=== PATIENT | male | born 1965 | race Caucasian/White ===

== ENCOUNTER → 2020-10-31 09:42 | Outpatient (BNVA) | payer OTHER, SELFPAY | PROVIDERS: Visit Provider Family Medicine Adult Medicine | DX: M54.16 Radiculopathy, lumbar region (principal); M43.06 Spondylolysis, lumbar region | CPT/HCPCS: 99212 ==

== ENCOUNTER → 2020-11-21 11:28 | Outpatient (BNVA) | payer OTHER, SELFPAY | PROVIDERS: Visit Provider Family Medicine Adult Medicine | DX: M54.16 Radiculopathy, lumbar region (principal); M43.06 Spondylolysis, lumbar region; Z79.891 Long term (current) use of opiate analgesic | CPT/HCPCS: 99212 ==

== ENCOUNTER → 2021-01-04 11:27 | Outpatient (BNVA) | payer OTHER, MEDICAID, SELFPAY | PROVIDERS: Visit Provider Family Medicine Adult Medicine | DX: Z51.81 Encounter for therapeutic drug level monitoring (principal) | CPT/HCPCS: Q3014 ==

== ENCOUNTER → 2021-02-01 10:22 | Outpatient (BNVA) | payer OTHER, MEDICAID, SELFPAY | PROVIDERS: Visit Provider Family Medicine Adult Medicine | DX: Z51.81 Encounter for therapeutic drug level monitoring (principal) | CPT/HCPCS: 99211 ==

== ENCOUNTER → 2021-10-02 08:30 | Outpatient (BNVA) | payer OTHER, MEDICAID, SELFPAY | PROVIDERS: Visit Provider Family Medicine Adult Medicine | DX: M54.16 Radiculopathy, lumbar region (principal); M43.06 Spondylolysis, lumbar region | CPT/HCPCS: 99212 ==

== ENCOUNTER → 2021-10-10 08:08 | Outpatient (BNVA) | payer OTHER, MEDICAID, SELFPAY | PROVIDERS: Visit Provider Nurse Practitioner Family | DX: M54.16 Radiculopathy, lumbar region (principal); M43.06 Spondylolysis, lumbar region | CPT/HCPCS: 99212 ==

== ENCOUNTER → 2021-10-30 08:12 | Outpatient (BNVA) | payer OTHER, MEDICAID, SELFPAY | PROVIDERS: Visit Provider Family Medicine Adult Medicine ==

== ENCOUNTER → 2021-11-27 08:38 | Outpatient (BNVA) | payer OTHER, MEDICAID, SELFPAY | PROVIDERS: Visit Provider Nurse Practitioner Family | DX: Z51.81 Encounter for therapeutic drug level monitoring (principal); M43.06 Spondylolysis, lumbar region; M54.16 Radiculopathy, lumbar region | CPT/HCPCS: 99212 ==

== ENCOUNTER → 2021-12-18 08:27 | Outpatient (BNVA) | payer OTHER, SELFPAY | PROVIDERS: Visit Provider Nurse Practitioner Family | DX: Z51.81 Encounter for therapeutic drug level monitoring (principal); F11.20 Opioid dependence, uncomplicated | CPT/HCPCS: 99211 ==

== ENCOUNTER 2023-06-24 14:49 | Outpatient (AMB) | payer OTHER, SELFPAY ==
[2023-06-24 14:51] VITALS: BP 102/68; PULSE 80; O2SAT 97; BMI 24.2
--- NOTE | 2023-06-24 14:51 | A.OFFPC_ITS ---
Vital Signs 06/24/23 14:51 Height 5 ft 4 in Weight 141 lb BMI 24.2 BP 102/68 Blood Pressure Location Lt brachial Position Sitting Pulse 80 Pulse Source Pulse Oximeter Temp Source Skin Pulse Oximetry (%) 97 Oxygen Delivery Method Room Air Intake Visit Reasons: Physical Exam Intake Note: Patient is here today for a physical. 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 Allergies No Known Allergies Allergy (Verified 06/24/23 15:15) Medication List - Last Reconciled 06/24/23 by MIRIAM De La Cruz alcohol swabs (Alcohol Prep Pads) 1 pad topical BID aspirin 81 mg PO QAM blood pressure test kit-medium As directed blood sugar diagnostic (FreeStyle Lite Strips) 1 strip miscellaneous BID 100 days blood-glucose meter (FreeStyle [place] kit) As directed buprenorphine HCl (Belbuca) 150 mcg buccal Q12H 30 days cholecalciferol (vitamin D3) 25 mcg PO DAILY 90 days cyanocobalamin (vitamin B-12) 100 mcg PO QAM dapagliflozin propanediol (Farxiga) 10 mg PO QAM ezetimibe 10 mg PO QAM fenofibrate 160 mg PO QPM gabapentin 800 mg PO QID lancets (TRUEplus Lancets) 1 gauge miscellaneous BID 30 days lisinopril 40 mg PO QAM metformin 1,000 mg PO BID 30 days miscellaneous medical supply 1 ea miscellaneous DAILY 30 days omega 4-sdf-aua-fish oil 60-90-500 mg (Fish Oil) 1 cap PO BID 90 days rosuvastatin 40 mg PO QAM Tobacco use date assessed: 06/24/23 Dental Screening Dental Screen Date: 06/24/23 Did you have a dental visit in the last 12 months?: No Did you have a dental problem in the last 6 months where you did not have access to dental care?: No HPI Physical Exam HPI Details Patient is a 57-year-old male who presents today for physical exam. Patient of NAYELY Cortez. medical history significant for right lumbar radiculopathy, lumbar spondylolysis - patient reports that he was seen by pain management in the past-would like to see pain management and hand for his back pain-asked if office can make appointment for him; diabetes type 2, hypertension, hyperlipidemia. Today we discussed patient's need for colon cancer screening. Also discussed patient's need for tetanus vaccine, patient has declined. Patient will call for a diabetic eye exam. Patient was encouraged to complete his blood work that was ordered by his PCP. Patient denies shortness of breath or chest pain. He reports that times he ambulates with a cane due to his back pain. He reports blood sugars at home ranging between 130 and 145, patient reports missing doses of diabetes medications at times. [facility] Medical History Lumbar spondylolysis Right lumbar radiculopathy Surgical History History of eye surgery Family History Father Diabetes Hypertension Mother Diabetes Alzheimers disease CAD (coronary artery disease) Brother In good health Sister In good health Son In good health Other Mental problem Social History Housing: Apartment Alcohol intake: current Alcohol intake frequency: holidays/special occasions only Patient Tobacco Use Status: Never used Tobacco e-Cigarette/Vaping Use: Never Used Second Hand Smoke Exposure: No service: No Current occupational status: disabled Cognitive needs: No Hearing needs: No Vision needs: No Questionnaire PHQ-9 Over the last 2 weeks, how often have you been bothered by any of the following problems? 1. Little interest or pleasure in doing things: not at all 2. Feeling down, depressed, or hopeless: not at all 3. Trouble falling or staying asleep, or sleeping too much: not at all 4. Feeling tired or having little energy: not at all 5. Poor appetite or overeating: not at all 6. Feeling bad about yourself - or that you are a failure or have let yourself or your family down: not at all 7. Trouble concentrating on things, such as reading the newspaper or watching television: not at all 8. Moving or speaking so slowly that other people could have noticed. Or the opposite - being so fidgety or restless that you have been moving around a lot more than usual: not at all 9. Thoughts that you would be better off or of hurting yourself in some way: not at all Total score: 0 Depression Screening Interpretation: Negative 70199 - PHQ-9 Billing: Yes Source: Developed by Drs. Santana Sanabria, Roopa Reza, Jake Rowan and colleagues, with an educational adalgisa from [employer]. Thrive Questionnaire Date Thrive assessed: 01/30/23 I am a: Patient What is your living situation today?: I have a steady place to live Within the past 12 months, did the food you bought not last and you didn't have the money to get more?: Never true Within the past 12 months, did you worry whether your food would run out before you got money to buy more?: Never true Currently or been in a relationship where the following occur: no concerns repor braulio AUDIT C Alcohol Use Questionnaire (AUDIT-C) 1. How often do you have a drink containing alcohol?: Monthly or less 2. How many drinks containing alcohol do you have on a typical day when you are drinking?: 1 or 2 3. How often do you have six or more drinks on one occasion?: Never Total Score: 1 Score Reviewed/Action Taken: No SHAHRIAR-7 AMB Questionnaire SHAHRIAR-7 Date SHAHRIAR - 7 assessed: 06/24/23 Feeling nervous, anxious, or on edge: 0 = Not at all Not being able to stop or control worryin = Not at all Worrying too much about different things: 0 = Not at all Trouble relaxin = Not at all Being so restless that it is hard to sit still: 0 = Not at all Becoming easily annoyed or irritable: 0 = Not at all Feeling afraid as if something awful might happen: 0 = Not at all Total SHAHRIAR-7 score (0-4 normal; 5-9 mild; 10-14 moderate; 15-21 severe): 0 Source: Developed by Drs. Santana Sanabria, Jake Lane and colleagues, with an educational adalgisa from [employer]. SHAHRIAR-7 Assessment Billing SHAHRIAR-7 Assessment Tool: SHAHRIAR-7 Assessment 46293 Review of Systems Const Denies body aches, Denies chills, Denies fever(s) and Denies headache(s) Eyes Denies change in vision ENT Denies dizziness, Denies otalgia, Denies headache(s), Denies nasal discharge, Denies sinus pain and Denies sore throat Card Denies chest pain, Denies edema, Denies lightheadedness and Denies dyspnea Resp Denies cough, Denies hemoptysis, Denies dyspnea and Denies wheezing GI Denies constipation, Denies diarrhea, Denies nausea and Denies vomiting Denies dysuria Musc Reports as per HPI, Reports back pain and Denies myalgias Skin/Breast Denies rash Neuro Denies dizziness and Denies headache(s) Aller/Immun Denies wheezing Physical exam (Primary Care) Vital Signs: Last Vital Signs Pulse 80 06/24/23 14:51 BP 102/68 06/24/23 14:51 Pulse Ox 97 06/24/23 14:51 Oxygen Delivery Method Room Air 06/24/23 14:51 BMI result Body Mass Index 24.2 Tobacco/Smoking Status: Tobacco use Status Tobacco use date assessed 06/24/23 06/24/23 14:53 Patient Tobacco Use Status Never used Tobacco 06/24/23 14:53 e-Cigarette/Vaping Use Never Used 06/24/23 14:53 PHQ-9: PHQ-9 Score PHQ-9: Total score 0 06/24/23 15:19 Depression Screening Interpretation: Negative Thrive Assessment: Date of Thrive Assessment Date Thrive assessed 01/30/23 06/24/23 14:53 Currently or been in a relationship where the following occur: no concerns reported Const General: cooperative and no acute distress Orientation/consciousness: patient oriented x3 HENMT Head: Yes normocephalic and Yes atraumatic Ears: TM's normal bilaterally Face and sinus: Yes sinuses nontender Mouth: oropharynx normal and moist mucous membranes Throat: Yes posterior oropharynx normal Eyes General: appearance normal, both eyes and all related structures Pupils: Equal, round and reactive pupils present EOM: EOMs intact bilaterally Neck Neck: Yes normal visual inspection, Yes full ROM and Yes no lymphadenopathy Thyroid: Thyroid normal Resp Effort & Inspection: normal respiratory effort and able to speak in complete sentences Auscultation: clear to auscultation bilaterally, no crackles, no rales, no rhonchi and no wheezes Cardio Rate: regular rate Rhythm: regular rhythm Heart sounds: S1 normal heart sound present, S2 normal heart sound present and no murmurs GI Palpation (GI): Soft to palpation, not firm, nontender, no guarding, not rigid and no hepatosplenomegaly Auscultation: normal bowel sounds General: No CVA tenderness Back/Spine/Pelvis Back: No CVA tenderness Skin General skin exam: no rashes or lesions noted Neuro General: patient oriented x3 Cranial nerves: Yes Equal, round and reactive pupils present Gait exam (Neuro): Normal gait present Extrem General: Yes full ROM and No edema Results AMB Hemoglobin A1c AMB Hemoglobin A1c 12.4 % Last Edit by NESTOR Neville on 06/24/23 15:12 Results Reviewed Results Reviewed: Laboratory Last Values Hgb A1c (Clinic) 12.4 % (4.0-6.0) H 06/24/23 15:09 Assessment and Plan Assessment & Plan (1) Tubular adenoma of colon: Code(s): D12.6 - Benign neoplasm of colon, unspecified Plan: GI referral for a colonoscopy (2) Annual physical exam: Code(s): Z00.00 - Encounter for general adult medical examination without abnormal findings (3) HLD (hyperlipidemia): Code(s): E78.5 - Hyperlipidemia, unspecified Qualifiers: Hyperlipidemia type: mixed hyperlipidemia Qualified Code(s): E78.2 - Mixed hyperlipidemia Plan: Continue current treatment Low-cholesterol diet Patient was encouraged to complete his blood work (4) HTN (hypertension): Code(s): I10 - Essential (primary) hypertension Qualifiers: Hypertension type: essential hypertension Qualified Code(s): I10 - Essential (primary) hypertension Plan: Continue current treatment Low-sodium diet Patient was encouraged to complete blood work (5) DMII (diabetes mellitus, type 2): Code(s): E11.9 - Type 2 diabetes mellitus without complications Qualifiers: Diabetes mellitus intermediate insulin use: without terminal carman use Diabetes mellitus complication status: with hyperglycemia Qualified Code(s): E11.65 - Type 2 diabetes mellitus with hyperglycemia Plan: A1c 12.4 today, goal less than 7, reinforced compliance with metformin and Farxiga Patient declined starting insulin Low-carbohydrate diet Patient is to call for diabetic eye exam Patient was encouraged to complete blood work (6) Lumbar spondylolysis: Code(s): M43.06 - Spondylolysis, lumbar region Plan: Continue gabapentin Will request office to schedule appointment with pain management, patient was seen by [place] pain management in the past Plan Follow-up with PCP in 3 months or sooner as needed Orders: Orders AMB Hemoglobin A1c Today E11.9 - Type 2 diabetes mellitus without complications Referrals Gastroenterology Referral D12.6 - Benign neoplasm of colon, unspecified Coding Level of Care Code Est Pt Prev Care 40-64y(55146) Diagnoses Tubular adenoma of colon D12.6 Annual physical exam Z00.00 HLD (hyperlipidemia) E78.2 Hyperlipidemia type: mixed hyperlipidemia HTN (hypertension) I10 Hypertension type: essential hypertension DMII (diabetes mellitus, type 2) E11.65 Diabetes mellitus intermediate insulin use: without intermediate use Diabetes mellitus complication status: with hyperglycemia Lumbar spondylolysis M43.06 Additional Codes SHAHRIAR-7 Assessment Billing - SHAHRIAR-7 Assessment Tool: SHAHRIAR-7 Assessment [id number] ([id number])
== END 2023-06-24 15:35 | disposition home or self-care (01) ==
PROVIDERS: PCP Physician Assistant; Visit Provider Nurse Practitioner Family
DX: Z00.00 Encounter for general adult medical examination without abnormal findings (principal); I10 Essential (primary) hypertension; E11.65 Type 2 diabetes mellitus with hyperglycemia; D12.6 Benign neoplasm of colon, unspecified; E78.2 Mixed hyperlipidemia; M43.06 Spondylolysis, lumbar region
CPT/HCPCS: 83036; 99396

== ENCOUNTER 2023-07-08 11:01 | Outpatient (AMB) | payer OTHER, SELFPAY ==
--- NOTE | 2023-07-08 11:23 | MHC.OFFVIS ---
Intake Vital Signs 07/08/23 11:24 Height 5 ft 4 in Weight 140 lb 6 oz BMI 24.1 BP 150/83 H Blood Pressure Location Lt brachial Position Sitting Respiration 14 Pulse 86 Pulse Source Pulse Oximeter Pulse Oximetry (%) 99 Oxygen Delivery Method Room Air Intake Visit Reasons: CONTINOUS BACK PAIN Allergies No Known Allergies Allergy (Verified 07/08/23 11:06) HPI HPI Comments History of Present Illness Details Roldan is a very pleasant 57 year old male who presents back to the office for follow up lower back pain. Patient was formerly enrolled in the chronic opioid therapy management program but was lost to follow up. Previously prescribed Belbuca which he reports did not provide much pain relief. He reports today continued pain in lower back with radiation into the buttocks and thighs. Pain is worse with sitting, standing and walking. He has tried PT in the past without effect. Was previously seen at [facility] and had many rounds in injections with no improvement. Using a Tens unit at home with good effect. He states offered surgery in the past but he is not interested in back surgery d/t potential complications. Denies red flag symptoms including loss of bowel, bladder or saddle anesthesia. Patient is diabetic with most recent A1c 06/2023 of 12.4. Recently seen by pcp and is working to better control DM. Prior: Patient is a pleasant 56 years old male who has been previously seen for chronic lower back pain by Dr. Magallon who has resigned. Today, he is here for a Butrans patch count which he forgot to bring and was sent home. Patient is supposed to have #0, after return from home patient, in his possession has #0 patches except the one he applied this week. This demonstrates a responsible attitude in regards to the medication regimen. Patient reports inadequate pain relief on his regimen of Butrans which was previously increased to 7.5 mcg/hour.? He reports slight decrease in pain, with no noted side effects. Denies any constipation, nausea, sedation, dizziness, or urinary retention. He states pain interferers with his sleep, mood, quality of life, activities of daily living and daily functions, and his social interactions. Patient reports he gets annual EKGs in [facility] which we well request a medical release and consider switching to Belbuca. [facility] Medical History Lumbar spondylolysis Right lumbar radiculopathy Surgical History History of eye surgery Family History Father Diabetes Hypertension Mother Diabetes Alzheimers disease CAD (coronary artery disease) Brother In good health Sister In good health Son In good health Other Mental problem Social History Housing: Apartment Alcohol intake: current Alcohol intake frequency: holidays/special occasions only Patient Tobacco Use Status: Never used Tobacco e-Cigarette/Vaping Use: Never Used Second Hand Smoke Exposure: No service: No Current occupational status: disabled Cognitive needs: No Hearing needs: No Vision needs: No Review of Systems Const All systems reviewed & are unremarkable except as noted in HPI and below Physical Exam Vital Signs: Last Vital Signs Pulse 86 07/08/23 11:24 Resp 14 07/08/23 11:24 BP 150/83 H 07/08/23 11:24 Pulse Ox 99 07/08/23 11:24 Oxygen Delivery Method Room Air 07/08/23 11:24 BMI result Body Mass Index 24.1 General: awake, alert, oriented. Answers questions appropriately. Fully engaged in examination. Skin: warm, dry, intact without visible rashes or lesions. HEENT: Normocephalic. Conjuntivae clear without exudate. Sclera non-icteric. Hearing intact. Cardiac: External chest normal in appearance. Respiratory: No signs of trauma. No signs of respiratory distress. No cough, audible wheezing or stridor. Abdomen: without gross distension. Neurological: Oriented to person, place, time and situation. Thought process intact. No gait abnormalities appreciated. Psychiatric: Appropriate mood and affect. Good judgment and insight. Back/Spine/Pelvis Other: Lumbar exam: Able to stand on bilateral tiptoes and bilateral heels. Able to transition from sit to stand unassisted. Ambulates with bilaterally normal heel strike and toe off Visual inspection without gross abnormality Tender to palpation over PSIS ROM: limited secondary to pain with extension to 10 degrees. flexion to 45 degrees Strength: 5/5 BLE Sensation: intact and symmetric BLE DTR: intact and symmetric Straight leg raises with and without dorsiflexion negative bilaterally Facet loading positive bilaterally JULIUS positive bilaterally Gaenslen positive bilaterally SI compression positive bilaterally Assessment & Plan Assessment & Plan (1) Sacroiliac joint dysfunction of both sides: Code(s): M53.3 - Sacrococcygeal disorders, not elsewhere classified (2) Lumbar spondylolysis: Code(s): M43.06 - Spondylolysis, lumbar region (3) Right lumbar radiculopathy: Code(s): M54.16 - Radiculopathy, lumbar region Plan Roldan is a very pleasant 57 year old male who presented to the office today for follow up chronic lower back pain. Patient was formerly enrolled in chronic opioid program, he was advised today that this program is currently closed to new/returning patient's. XR Lumbar spine ordered PT eval and treat ordered for bilateral SI joint dysfunction Topical compound cream sent to pharmacy. patient instructed on use. Discussed options for treatment including diagnostic interventional testing, epidural steroid injections, peripheral nerve stimulation with Sprint, RFA and more permanent neuromodulation. I Patient would need better control of his DM with improvement in A1c before steroids or neuromodulation could be considered. All questions and concerns have been answered and patient agrees with the plan. Follow up after PT, sooner if needed. Orders: Orders PT Evaluation and Treatment Today M53.3 - Sacrococcygeal disorders, not elsewhere classified XR lumbar spine 4V min Today M43.06 - Spondylolysis, lumbar region, M53.3 - Sacrococcygeal disorders, not elsewhere classified, M54.16 - Radiculopathy, lumbar region Medications: New cream base no.105 (bulk) (Base W301 cream) Diclofenac 3%, Baclofen 2%, Bupivicane 2% SIG: apply pea-sized amount 3-5 times daily to painful areas as needed 180 grams 1RF pain Coding Level of Care Code Est Pt Level 4 (87664) Diagnoses Sacroiliac joint dysfunction of both sides M53.3 Lumbar spondylolysis M43.06 Right lumbar radiculopathy M54.16
[2023-07-08 11:24] VITALS: BP 150/83; PULSE 86; RESP 14; O2SAT 99; BMI 24.1
== END 2023-07-08 11:38 | disposition home or self-care (01) ==
PROVIDERS: PCP Physician Assistant; Visit Provider Registered Nurse Emergency
DX: M53.3 Sacrococcygeal disorders, not elsewhere classified (principal); M47.26 Other spondylosis with radiculopathy, lumbar region
CPT/HCPCS: 99214

== ENCOUNTER → 2023-07-08 11:01 | Outpatient (BNVA) | payer OTHER, SELFPAY | PROVIDERS: PCP Physician Assistant; Visit Provider Registered Nurse Emergency | DX: M53.3 Sacrococcygeal disorders, not elsewhere classified (principal); M47.26 Other spondylosis with radiculopathy, lumbar region | CPT/HCPCS: 99212 ==

== ENCOUNTER 2023-10-01 14:34 | Outpatient (AMB) | payer OTHER, SELFPAY ==
--- NOTE | 2023-10-01 14:46 | MHC.OFFVIS ---
Intake Vital Signs 10/01/23 14:48 Height 5 ft 4 in Weight 142 lb BMI 24.4 BP 120/57 L Blood Pressure Location Lt brachial Position Sitting Pulse 92 Intake Visit Reasons: Colonoscopy Screening Intake Note: Patient new consult for 2nd pre colonoscopy screening. Patient denies any GI issues. 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 Accompanied by: Self / Same As Patient Allergies No Known Allergies Allergy (Verified 10/01/23 14:46) Medication List - Last Reconciled 10/01/23 by Marilyn Cordero PA-C alcohol swabs (Alcohol Prep Pads) 1 pad topical BID aspirin 81 mg PO QAM blood pressure test kit-medium As directed blood sugar diagnostic (FreeStyle Lite Strips) 1 strip miscellaneous BID 100 days blood-glucose meter (FreeStyle [place] kit) As directed buprenorphine HCl (Belbuca) 150 mcg buccal Q12H 30 days cholecalciferol (vitamin D3) 25 mcg PO DAILY 90 days cream base no.105 (bulk) (Base W301 cream) Diclofenac 3%, Baclofen 2%, Bupivicane 2% SIG: apply pea-sized amount 3-5 times daily to painful areas as needed cyanocobalamin (vitamin B-12) 100 mcg PO QAM dapagliflozin propanediol (Farxiga) 10 mg PO QAM ezetimibe 10 mg PO QAM fenofibrate 160 mg PO QPM gabapentin 800 mg PO QID lancets (TRUEplus Lancets) 1 gauge miscellaneous BID 30 days lisinopril 40 mg PO QAM metformin 1,000 mg PO BID 30 days miscellaneous medical supply 1 ea miscellaneous DAILY 30 days omega 9-imw-bix-fish oil 60-90-500 mg (Fish Oil) 1 cap PO BID 90 days rosuvastatin 40 mg PO QAM HPI HPI Comments History of Present Illness Details A 58 y/o male overdue polyp surveillance colomoscopy- He has no GI complaints He has a normal bowel pattern. He has a good appetite Review of records showed-2016 adenoma No nausea, vomiting, hematemesis, hematochezia fever chills PFSH Medical History Lumbar spondylolysis Right lumbar radiculopathy Surgical History History of eye surgery Family History Father Diabetes Hypertension Mother Diabetes Alzheimers disease CAD (coronary artery disease) Brother In good health Sister In good health Son In good health Other Mental problem Social History Housing: Apartment Alcohol intake: current Alcohol intake frequency: holidays/special occasions only Patient Tobacco Use Status: Never used Tobacco e-Cigarette/Vaping Use: Never Used Second Hand Smoke Exposure: No service: No Current occupational status: disabled Cognitive needs: No Hearing needs: No Vision needs: No Review of Systems Const All systems reviewed & are unremarkable except as noted in HPI and below Card Denies chest pain and Denies dyspnea Resp Denies dyspnea GI Denies abdominal pain, Denies hematochezia, Denies change in bowel habits, Denies change in stool character, Denies dyspepsia, Denies diarrhea, Denies nausea and Denies vomiting Physical Exam Vital Signs: Last Vital Signs Pulse 92 10/01/23 14:48 BP 120/57 L 10/01/23 14:48 BMI result Body Mass Index 24.4 Const General: cooperative, healthy appearing and comfortable Orientation/consciousness: patient oriented x3 Limitations: language barrier Eyes Sclerae: sclerae normal Resp Effort & Inspection: normal respiratory effort and able to speak in complete sentences Auscultation: clear to auscultation bilaterally, no rales, no rhonchi and no wheezes Cardio Rate: regular rate Rhythm: regular rhythm Heart sounds: S1 normal heart sound present and S2 normal heart sound present GI Palpation (GI): Soft to palpation and nontender Auscultation: normal bowel sounds Skin General skin exam: no rashes or lesions noted Neuro General: patient oriented x3 Extrem General: Yes full ROM Psych Appearance: grossly normal and well kempt Mental Status: mental status grossly normal Speech and movement: Normal speech and movement present and Clear speech present Affect: normal affect Attitude: cooperative Thought process: Normal thought process present Thought content: Normal thought content present Insight: Good insight present (Psych) Judgement: Good judgement present (Psych) Results Reviewed Results Reviewed: Previous colonoscopy 2016 Assessment & Plan Assessment & Plan (1) Tubular adenoma of colon: Comment: Not a great historian, reviewed medication list, importance of having list available at time of scheduling he is agreeable. 2016 Code(s): D12.6 - Benign neoplasm of colon, unspecified Plan: Accurate list of medications to be reviewed at time of schedule Plan Have med list avail for review- DM meds- were unclear- he is aware Colonoscopy- MG prep No DM meds day of procedure Orders: Orders Colonoscopy - GI Use Only 10/01/23 D12.6 - Benign neoplasm of colon, unspecified Medications: New bisacodyl (Dulcolax (bisacodyl)) Day before procedure, prep day Take 4 tablets by mouth upon awakening followed by large glass of water 20 mg (4 x 5 mg) PO ONCE 1 day 4 tabs 0RF colonoscopy prep Z12.11 - Encounter for screening for malignant neoplasm of colon polyethylene glycol 3350 (Miralax) Take as directed by mouth the day before your procedure. 238 grams PO ONCE 1 day 238 grams 0RF laxative effect Patient Instructions: Have med list avail for review- DM meds- were unclear- he is aware Colonoscopy- MG prep No DM meds day of procedure No major barriers to understanding were identified Encouraged to call with questions or concerns Coding Level of Care Code New Pt Level 3 (21682) Diagnoses Tubular adenoma of colon D12.6 Time Spent (min) 35 Comment Not a great historian
[2023-10-01 14:48] VITALS: BP 120/57; PULSE 92; BMI 24.4
== END 2023-10-01 15:28 | disposition home or self-care (01) ==
PROVIDERS: PCP Physician Assistant; Visit Provider Physician Assistant
DX: D12.6 Benign neoplasm of colon, unspecified (principal)
CPT/HCPCS: 99203

== ENCOUNTER → 2023-10-01 14:34 | Outpatient (BNVA) | payer OTHER, SELFPAY | PROVIDERS: PCP Physician Assistant; Visit Provider Physician Assistant | DX: D12.6 Benign neoplasm of colon, unspecified (principal) | CPT/HCPCS: 99202 ==

== ENCOUNTER 2024-03-15 13:35 | Outpatient (AMB) | payer OTHER, SELFPAY ==
[2024-03-15 14:04] VITALS: BP 112/62; PULSE 87; O2SAT 97; BMI 23.9
--- NOTE | 2024-03-15 14:04 | MHC.PC.OV ---
Vital Signs 03/15/24 14:04 Height 5 ft 4 in Weight 139 lb 2 oz BMI 23.9 BP 112/62 Blood Pressure Location Lt brachial Position Sitting Pulse 87 Pulse Source Pulse Oximeter Pulse Oximetry (%) 97 Oxygen Delivery Method Room Air Intake Visit Reasons: MEDS F/U Ladies Attendant Required: No Accompanied by: Self / Same As Patient Allergies No Known Allergies Allergy (Verified 03/15/24 14:40) Medication List - Last Reconciled 03/15/24 by Jared Cortez PA-C alcohol swabs (Alcohol Prep Pads) 1 pad topical BID aspirin 81 mg PO QAM bisacodyl (Dulcolax (bisacodyl)) 20 mg (4 x 5 mg) PO ONCE 1 day blood pressure test kit-medium As directed blood sugar diagnostic (FreeStyle Lite Strips) 1 strip miscellaneous BID 100 days blood-glucose meter (FreeStyle Newberry kit) As directed buprenorphine HCl (Belbuca) 150 mcg buccal Q12H 30 days cholecalciferol (vitamin D3) 25 mcg PO DAILY 90 days cream base no.105 (bulk) (Base W301 cream) Diclofenac 3%, Baclofen 2%, Bupivicane 2% SIG: apply pea-sized amount 3-5 times daily to painful areas as needed cyanocobalamin (vitamin B-12) 100 mcg PO QAM dapagliflozin propanediol (Farxiga) 10 mg PO QAM OO-nrphkaytnueds-QG 10-325-200 mg/15 mL (Coricidin HBP Max Ollz-Vfr-Vwe) 30 mL PO Q6H PRN 7 days ezetimibe 10 mg PO QAM fenofibrate 160 mg PO QPM gabapentin 800 mg PO QID lancets (TRUEplus Lancets) 1 gauge miscellaneous BID 30 days lisinopril 40 mg PO QAM metformin 1,000 mg PO BID 30 days miscellaneous medical supply 1 ea miscellaneous DAILY 30 days omega 8-ukv-wxu-fish oil 60-90-500 mg (Fish Oil) 1 cap PO BID 90 days polyethylene glycol 3350 (Miralax) 238 grams PO ONCE 1 day rosuvastatin 40 mg PO QAM Tobacco use date assessed: 03/15/24 Dental Screening Dental Screen Date: 03/15/24 Did you have a dental visit in the last 12 months?: No Did you have a dental problem in the last 6 months where you did not have access to dental care?: Yes Was dental information given to patient?: Yes HPI MEDS F/U HPI Details Patient is a 58-year-old male? here today for a f/u visit. ? Patient has a past medical history significant type 2 diabetes with retinopathy chronic lumbar radiculopathy hypertension hyper lipidemia, vitamin-D deficiency. ?? unfortunately has been unable to get his fasting labs done. ? .. ? CKD stage 3: Patient is followed by Nephrology and has been told to avoid nephrotoxins. ? .. ? Type 2 diabetes:? .? He reports blood sugars at home have been 120s -150s. .? He reports [employer] was working better for him though has not been able to be covered by insurance. ? Patient continues on Farxiga and metformin.? Has been tring to follow a low carbohydrate low sugar diet. .. Hypertension: Blood pressure today in office acceptable. He reports that home blood pressures have been stable, he denies any chest discomfort, headaches, shortness of breath or fatigue .. Lumbar spondylosis:? Was followed by [facility]. Does not seem to be using Belbuca anymore. He plans on re-establishing care with pain management for his lumbar spine pain. [facility] Medical History Lumbar spondylolysis Right lumbar radiculopathy Surgical History History of eye surgery Family History Father Diabetes Hypertension Mother Diabetes Alzheimers disease CAD (coronary artery disease) Brother In good health Sister In good health Son In good health Other Mental problem Social History Housing: Apartment Alcohol intake: current Alcohol intake frequency: holidays/special occasions only Patient Tobacco Use Status: Never used Tobacco e-Cigarette/Vaping Use: Never Used Second Hand Smoke Exposure: No service: No Current occupational status: disabled Cognitive needs: No Hearing needs: No Vision needs: No Questionnaire PHQ-9 Over the last 2 weeks, how often have you been bothered by any of the following problems? 1. Little interest or pleasure in doing things: not at all 2. Feeling down, depressed, or hopeless: not at all 3. Trouble falling or staying asleep, or sleeping too much: not at all 4. Feeling tired or having little energy: not at all 5. Poor appetite or overeating: not at all 6. Feeling bad about yourself - or that you are a failure or have let yourself or your family down: not at all 7. Trouble concentrating on things, such as reading the newspaper or watching television: not at all 8. Moving or speaking so slowly that other people could have noticed. Or the opposite - being so fidgety or restless that you have been moving around a lot more than usual: not at all 9. Thoughts that you would be better off or of hurting yourself in some way: not at all Total score: 0 Depression Screening Interpretation: Negative Depression Screening Done: Yes 90228 - PHQ-9 Billing: Yes Source: Developed by Drs. Santana Sanabria, Roopa Reza, Jake Rowan and colleagues, with an educational adalgisa from [employer]. Thrive Questionnaire Date Thrive assessed: 03/15/24 I am a: Patient What is your living situation today?: I have a steady place to live Within the past 12 months, did the food you bought not last and you didn't have the money to get more?: Never true Within the past 12 months, did you worry whether your food would run out before you got money to buy more?: Never true Do you have trouble paying for medicines?: No Do you have trouble getting transportation to medical appointments?: No Do you have trouble paying your heating and electricity bill?: No Do you have trouble taking care of your child, family member or friend?: No Do you have trouble with day-to-day activities such as bathing, preparing meals, shopping, managing finances, etc.?: No Are you currently unemployed and looking for a job?: No Are you interested in more education?: No Please select the resources that you would like help with: None Currently or been in a relationship where the following occur: no concerns reported THRIVE Score: 0 AUDIT C Alcohol Use Questionnaire (AUDIT-C) 1. How often do you have a drink containing alcohol?: Monthly or less 2. How many drinks containing alcohol do you have on a typical day when you are drinking?: 1 or 2 3. How often do you have six or more drinks on one occasion?: Never Total Score: 1 Score Reviewed/Action Taken: No SHAHRIAR-7 AMB Questionnaire SHAHRIAR-7 Date SHAHRIAR - 7 assessed: 03/15/24 Feeling nervous, anxious, or on edge: 0 = Not at all Not being able to stop or control worryin = Not at all Worrying too much about different things: 0 = Not at all Trouble relaxin = Not at all Being so restless that it is hard to sit still: 0 = Not at all Becoming easily annoyed or irritable: 0 = Not at all Feeling afraid as if something awful might happen: 0 = Not at all Total SHAHRIAR-7 score (0-4 normal; 5-9 mild; 10-14 moderate; 15-21 severe): 0 Source: Developed by Drs. Santana Sanabria, Roopa Reza, Jake Rowan and colleagues, with an educational adalgisa from [employer]. SHAHRIAR-7 Assessment Billing SHAHRIAR-7 Assessment Tool: SHAHRIAR-7 Assessment 42854 Review of Systems Const Denies headache(s) Eyes Denies loss of vision ENT Denies vertigo, Denies dizziness, Denies headache(s) and Denies sore throat Card Denies chest pain, Denies leg edema and Denies lightheadedness Resp Denies cough, Denies hemoptysis and Denies wheezing GI Denies abdominal pain, Denies melena, Denies constipation, Denies diarrhea and Denies vomiting Denies dysuria, Denies urinary frequency and Denies urinary urgency Musc Denies arthralgias, Denies joint swelling, Denies numbness and Denies tingling Neuro Denies Abnormal speech present, Denies behavioral changes, Denies vertigo, Denies dizziness, Denies headache(s), Denies loss of vision, Denies memory loss, Denies numbness and Denies tingling Psych Denies anxiety, Denies behavioral changes, Denies depression, Denies memory loss and Denies panic attacks Rickey/Lymph Denies easy bleeding and Denies easy bruising Aller/Immun Denies wheezing Physical exam (Primary Care) Vital Signs: Last Vital Signs Pulse 87 03/15/24 14:04 BP 112/62 03/15/24 14:04 Pulse Ox 97 03/15/24 14:04 Oxygen Delivery Method Room Air 03/15/24 14:04 BMI result Body Mass Index 23.9 Tobacco/Smoking Status: Tobacco use Status Tobacco use date assessed 03/15/24 03/15/24 14:23 Patient Tobacco Use Status Never used Tobacco 03/15/24 14:04 e-Cigarette/Vaping Use Never Used 03/15/24 14:04 PHQ-9: PHQ-9 Score PHQ-9: Total score 0 03/15/24 14:23 Depression Screening Interpretation: Negative Thrive Assessment: Date of Thrive Assessment Date Thrive assessed 03/15/24 03/15/24 14:23 Currently or been in a relationship where the following occur: no concerns reported Const General: healthy appearing, no acute distress, alert and awake Nutritional Appearance: well nourished Orientation/consciousness: oriented to person, oriented to place and oriented to time HENMT Ears: TM's normal bilaterally General nose exam: Normal nasal mucous membranes and turbinates present Eyes Conjunctivae: conjunctivae normal Sclerae: sclerae normal Pupils: Equal, round and reactive pupils present Neck Neck: Yes no lymphadenopathy and Yes no JVD Thyroid: Thyroid normal Carotids: no bruits Resp Effort & Inspection: normal respiratory effort and not tachypneic Auscultation: no crackles, no rales, no rhonchi and no wheezes Cardio Rate: regular rate Rhythm: regular rhythm Heart sounds: no murmurs and normal S1 and S2 GI Palpation (GI): Soft to palpation, nontender, no hepatomegaly and no splenomegaly Auscultation: normal bowel sounds Skin General skin exam: no rashes or lesions noted and dry skin Neuro General: oriented to person, oriented to place and oriented to time Cranial nerves: Yes Equal, round and reactive pupils present Speech: No Abnormal speech present Gait exam (Neuro): Normal gait present Motor exam (neuro): no tremor noted Extrem Right upper extremity: full ROM Left upper extremity: full ROM Right lower extremity: full ROM; no edema Left lower extremity: full ROM; no edema Psych Mental Status: mental status grossly normal Speech and movement: Normal speech and movement present Affect: normal affect Attitude: cooperative Thought process: Normal thought process present Assessment and Plan Assessment & Plan (1) HLD (hyperlipidemia): Code(s): E78.5 - Hyperlipidemia, unspecified Qualifiers: Hyperlipidemia type: mixed hyperlipidemia Qualified Code(s): E78.2 - Mixed hyperlipidemia Plan: Patient continues on statin therapy without side. Unfortunately has not able to get fasting labs done in quite some time and is willing to do so before upcoming annual physical. Goal LDL to be below 100 (2) HTN (hypertension): Code(s): I10 - Essential (primary) hypertension Qualifiers: Hypertension type: essential hypertension Qualified Code(s): I10 - Essential (primary) hypertension Plan: Patient's blood pressure acceptable today in office thus will continue current antihypertensive medication with goal blood pressure be below 140/90 (3) DMII (diabetes mellitus, type 2): Code(s): E11.9 - Type 2 diabetes mellitus without complications Qualifiers: Diabetes mellitus terminal gauger supervisor insulin use: without terminal gauger supervisor use Diabetes mellitus complication status: with hyperglycemia Qualified Code(s): E11.65 - Type 2 diabetes mellitus with hyperglycemia Plan: Patient's type 2 diabetes is suboptimally controlled though patient is reported as stable. Most recent A1c on file at 12. Reports blood sugars are 120s to 150s at home. Will repeat A1c before next visit, goal A1c to be below 7 (4) Lumbar spondylolysis: Code(s): M43.06 - Spondylolysis, lumbar region Plan: Patient no longer following up with pain management clinic. Was on Belbuca. Continues on gabapentin He reports his back pain is fairly well controlled with current med regime, (5) Right shoulder pain: Code(s): M25.511 - Pain in right shoulder Qualifiers: Chronicity: acute Qualified Code(s): M25.511 - Pain in right shoulder Plan: Reports having acute right shoulder pain after lifting groceries up to his 2nd floor apartment. Supply him short-term script for NSAID. Orders: Orders Lipid Panel Today E78.2 - Mixed hyperlipidemia Comprehensive [place]. Panel Fast Today E11.65 - Type 2 diabetes mellitus with hyperglycemia Prostate Specific Antigen Scr Today E11.65 - Type 2 diabetes mellitus with hyperglycemia, Z12.5 - Encounter for screening for malignant neoplasm of prostate Microalbumin, Random (w Creat) Today I10 - Essential (primary) hypertension Hemoglobin A1c Today E11.65 - Type 2 diabetes mellitus with hyperglycemia Medications: New diclofenac sodium 50 mg PO DAILY 10 days 10 tabs 0RF M25.511 - Pain in right shoulder Discontinued buprenorphine HCl (Belbuca) Discontinued Reason: Doctor's Order 150 mcg buccal Q12H 30 days 60 ea 0RF pain M43.06 - Spondylolysis, lumbar region, M54.16 - Radiculopathy, lumbar region Coding Level of Care Code Est Pt Level 4 (98962) Diagnoses Mixed hyperlipidemia E78.2 Hyperlipidemia type: mixed hyperlipidemia Essential hypertension I10 Hypertension type: essential hypertension Type 2 diabetes mellitus with hyperglycemia, without long-term current use of insulin E11.65 Diabetes mellitus terminal gauger supervisor insulin use: without terminal gauger supervisor use Diabetes mellitus complication status: with hyperglycemia Lumbar spondylolysis M43.06 Acute pain of right shoulder M25.511 Chronicity: acute Additional Codes SHAHRIAR-7 Assessment Billing - SHAHRIAR-7 Assessment Tool: SHAHRIAR-7 Assessment [id number] ([id number])
== END 2024-03-15 14:54 | disposition home or self-care (01) ==
LOC: HO.HMGH 13:38
PROVIDERS: PCP Physician Assistant; Visit Provider Physician Assistant
DX: E78.2 Mixed hyperlipidemia (principal); I10 Essential (primary) hypertension; E11.65 Type 2 diabetes mellitus with hyperglycemia; M43.06 Spondylolysis, lumbar region; M25.511 Pain in right shoulder
CPT/HCPCS: 99214

== ENCOUNTER 2024-07-27 15:00 | Outpatient (AMB) | payer OTHER, SELFPAY ==
[2024-07-27 15:00] VITALS: BP 108/58; PULSE 90; O2SAT 99; BMI 22.9
--- NOTE | 2024-07-27 15:00 | A.OFFPC_ITS ---
Vital Signs 07/27/24 15:00 Height 5 ft 4 in Weight 133 lb 8 oz BMI 22.9 BP 108/58 L Blood Pressure Location Lt brachial Position Sitting Pulse 90 Pulse Source Pulse Oximeter Pulse Oximetry (%) 99 Oxygen Delivery Method Room Air Intake Visit Reasons: Annual exam Intake Note: Patient is here today for a physical. Stitcher Standard Machine Required: No Accompanied by: Self / Same As Patient Allergies No Known Allergies Allergy (Verified 07/27/24 15:17) Medication List - Last Reconciled 07/27/24 by Jared Cortez PA-C alcohol swabs (Alcohol Prep Pads) 1 pad topical BID aspirin 81 mg PO QAM bisacodyl (Dulcolax (bisacodyl)) 20 mg (4 x 5 mg) PO ONCE 1 day blood pressure test kit-medium As directed blood sugar diagnostic (FreeStyle Lite Strips) 1 strip miscellaneous BID 100 days blood-glucose meter (FreeStyle Libby kit) As directed cholecalciferol (vitamin D3) 25 mcg PO DAILY 90 days cream base no.105 (bulk) (Base W301 cream) Diclofenac 3%, Baclofen 2%, Bupivicane 2% SIG: apply pea-sized amount 3-5 times daily to painful areas as needed cyanocobalamin (vitamin B-12) 100 mcg PO QAM dapagliflozin propanediol (Farxiga) 10 mg PO QAM diclofenac sodium 50 mg PO DAILY 10 days VK-qzkzzkdvmgvdo-PD 10-325-200 mg/15 mL (Coricidin HBP Max Jbfe-Vtn-Sgk) 30 mL PO Q6H PRN 7 days ezetimibe 10 mg PO QAM fenofibrate 160 mg PO QPM gabapentin 800 mg PO QID lancets (TRUEplus Lancets) TEST BLOOD SUGAR TWICE DAILY lisinopril 40 mg PO QAM metformin 1,000 mg PO BID 30 days miscellaneous medical supply 1 ea miscellaneous DAILY 30 days omega 9-kqi-nrc-fish oil 60-90-500 mg (Fish Oil) 1 cap PO BID 90 days polyethylene glycol 3350 (Miralax) 238 grams PO ONCE 1 day rosuvastatin 40 mg PO QAM Tobacco use date assessed: 03/15/24 Dental Screening Dental Screen Date: 03/15/24 HPI Annual exam HPI Details Patient is a 58-year-old male? here today for an annual physical ? Patient has a past medical history significant type 2 diabetes with retinopathy chronic lumbar radiculopathy hypertension hyper lipidemia, vitamin-D deficiency. ?? unfortunately has been unable to get his fasting labs done. Concern--> reports he has continued to have right shoulder pain. Has tried anti-inflammatory though have not been helpful. He does admit to some crepitus with range of motion activities. He is willing to try lidocaine patch and be seen by orthopedic for possible cortisone injection. ? .. ? CKD stage 3: Patient is followed by Nephrology and has been told to avoid nephrotoxins. ? .. ? Type 2 diabetes:? . Patient continues to have uncontrolled diabetes. He reports blood sugars at home have been 120s -150s. .? He reports [employer] was working [employer] for him though has not been able to be covered by insurance. ? Patient continues on Farxiga and metformin.? Has been tring to follow a low carbohydrate low sugar diet. HE STILL CONTINUES TO DECLINE MY OFFERS TO START INSULIN DAILY. PLAN: Patient willing to start additional Ozempic for glycemic control. .. Hypertension: Blood pressure today in office acceptable. He reports that home blood pressures have been stable, he denies any chest discomfort, headaches, shortness of breath or fatigue .. Lumbar spondylosis:? Was followed by [place] pain management. Does not seem to be using Belbuca anymore. He plans on re-establishing care with pain management for his lumbar spine pain. colonoscopy: Dr Castillo 2016- tubular adenoma - has upcoming appointment for colonoscopy though reports he got the flu and had to cancel appointment. . VAccine : UTD with Tdap, UTD with PCV, considering COVID vac [facility] Medical History Lumbar spondylolysis Right lumbar radiculopathy Surgical History History of eye surgery Family History Father Diabetes Hypertension Mother Diabetes Alzheimers disease CAD (coronary artery disease) Brother In good health Sister In good health Son In good health Other Mental problem Social History Housing: Apartment Alcohol intake: current Alcohol intake frequency: holidays/special occasions only Patient Tobacco Use Status: Never used Tobacco e-Cigarette/Vaping Use: Never Used Second Hand Smoke Exposure: No service: No Current occupational status: disabled Cognitive needs: No Hearing needs: No Vision needs: No Questionnaire Thrive Questionnaire Date Thrive assessed: 03/15/24 SHAHRIAR-7 AMB Questionnaire SHAHRIAR-7 Date SHAHRIAR - 7 assessed: 03/15/24 Source: Developed by Drs. Santana Sanabria, Roopa Reza, Jake Rowan and colleagues, with an educational adalgisa from [employer]. Review of Systems Const Denies body aches, Denies chills, Denies excessive sweating, Denies fatigue, Denies fever(s) and Denies headache(s) Eyes Denies blurry vision ENT Denies dysphagia, Denies vertigo, Denies dizziness, Denies headache(s), Denies hearing loss and Denies tinnitus Card Denies chest pain, Denies chest pain with activity, Denies syncope, Denies irregular heart rhythm and Denies dyspnea Resp Denies chest congestion, Denies cough, Denies hemoptysis, Denies dyspnea and Denies wheezing GI Denies abdominal pain, Denies melena, Denies hematochezia, Denies coffee ground emesis, Denies dysphagia, Denies diarrhea, Denies nausea and Denies vomiting Denies difficulty urinating, Denies dysuria, Denies urinary frequency, Denies urinary hesitancy and Denies urinary urgency Musc Denies arthralgias, Denies limited range of motion, Denies muscle cramps and Denies muscle weakness Skin/Breast Denies rash and Denies skin ulcer Neuro Denies Abnormal speech present, Denies confusion, Denies vertigo, Denies dizziness, Denies syncope, Denies headache(s), Denies memory loss and Denies seizure-like activity Psych Denies anxiety, Denies confusion, Denies depression, Denies memory loss, Denies panic attacks and Denies paranoia Endo Denies excessive sweating, Denies fatigue, Denies flushing, Denies polydipsia and Denies polyuria Aller/Immun Denies wheezing Physical exam (Primary Care) Vital Signs: Last Vital Signs Pulse 90 07/27/24 15:00 BP 108/58 L 07/27/24 15:00 Pulse Ox 99 07/27/24 15:00 Oxygen Delivery Method Room Air 07/27/24 15:00 BMI result Body Mass Index 22.9 Tobacco/Smoking Status: Tobacco use Status Tobacco use date assessed 03/15/24 07/27/24 15:00 Patient Tobacco Use Status Never used Tobacco 07/27/24 15:00 e-Cigarette/Vaping Use Never Used 07/27/24 15:00 Thrive Assessment: Date of Thrive Assessment Date Thrive assessed 03/15/24 07/27/24 15:00 Const General: cooperative, comfortable, no acute distress, alert and awake; No confusion Orientation/consciousness: oriented to person, oriented to place, patient oriented x3 and No confusion HENMT Head: Yes normocephalic Ears: external ears normal and TM's normal bilaterally Face and sinus: No sinus tenderness Mouth: Normal oral and palatal mucosa present and tongue normal Teeth and gingiva: dentition normal and gingiva normal Throat: Yes posterior oropharynx normal, Yes tonsils normal and Yes uvula midline Eyes Conjunctivae: conjunctivae normal Sclerae: sclerae normal Pupils: Equal, round and reactive pupils present EOM: EOMs intact bilaterally Direct Ophthalmoscopy: No no photophobia Neck Neck: Yes no lymphadenopathy, No tender and Yes no JVD Thyroid: Thyroid normal Carotids: no bruits Chest Chest palpation & inspection: no tenderness Resp Effort & Inspection: normal respiratory effort, no audible wheezes, not labored and no stridor Auscultation: no crackles, no rales, no rhonchi and no wheezes Cardio Jugular venous distension: no JVD Rate: regular rate, not bradycardic and not tachycardic Rhythm: regular rhythm Bruits: no carotid bruits Peripheral pulses: Peripheral pulses 2+ throughout GI Inspection: Yes normal to inspection, No abdominal wall ecchymosis and No visible herniation Palpation (GI): Soft to palpation, nontender, no guarding, not rigid and No hepatosplenomegaly present Auscultation: normoactive bowel sounds General: Yes no CVA tenderness Back/Spine/Pelvis Back: no CVA tenderness and No back tenderness Cervical Spine: cervical ROM normal Thoracic/Lumbar Spine: thoracic and lumbar spine normal to inspection, straight leg raise negative bilaterally, No thoraco-lumbar ROM limited and No lumbar spinal tenderness Skin Lesions: no lesions Rashes: no rashes Wounds: no wounds Neuro General: oriented to person, oriented to place, patient oriented x3, CN's II-XI intact bilaterally and No confusion Cranial nerves: Yes Equal, round and reactive pupils present and Yes Normal accommodation reflex present Cognition (Neuro): normal cognition Speech: No Abnormal speech present Gait exam (Neuro): Normal gait present Motor exam (neuro): 5/5 motor strength present throughout Extrem Right upper extremity: full ROM; no cyanosis Left upper extremity: full ROM; no cyanosis Right lower extremity: no edema Left lower extremity: no edema Psych Appearance: grossly normal Mental Status: mental status grossly normal Affect: normal affect Attitude: cooperative Thought process: Normal thought process present Results AMB Hemoglobin A1c AMB Hemoglobin A1c 11.9 % Last Edit by GUCCI Ferrer on 07/27/24 15:14 Results Reviewed Results Reviewed: Laboratory Last Values Hgb A1c (Clinic) 11.9 % (4.0-6.0) H 07/27/24 15:14 Assessment and Plan Assessment & Plan (1) Annual physical exam: Code(s): Z00.00 - Encounter for general adult medical examination without abnormal findings (2) HLD (hyperlipidemia): Code(s): E78.5 - Hyperlipidemia, unspecified Qualifiers: Hyperlipidemia type: mixed hyperlipidemia Qualified Code(s): E78.2 - Mixed hyperlipidemia Plan: Patient continues on statin therapy without side. Unfortunately has not able to get fasting labs done in quite some time and is willing to do so before upcoming annual physical. Goal LDL to be below 100 (3) HTN (hypertension): Code(s): I10 - Essential (primary) hypertension Qualifiers: Hypertension type: essential hypertension Qualified Code(s): I10 - Essential (primary) hypertension Plan: Patient's blood pressure acceptable today in office thus will continue current antihypertensive medication with goal blood pressure be below 140/90 (4) DMII (diabetes mellitus, type 2): Code(s): E11.9 - Type 2 diabetes mellitus without complications Qualifiers: Diabetes mellitus senior care insulin use: without senior care use Diabetes mellitus complication status: with hyperglycemia Qualified Code(s): E11.65 - Type 2 diabetes mellitus with hyperglycemia Plan: Patient's type 2 diabetes is suboptimally controlled though patient is reported as stable. Patient's A1c still remains above 11. Continues on metformin and Farxiga. DECLINES MY OFFERS to start insulin daily therapy. He is willing to try Ozempic for glycemic control. Goal A1c is to be below 7.0 (5) Lumbar spondylolysis: Code(s): M43.06 - Spondylolysis, lumbar region Plan: Patient no longer following up with pain management clinic. Was on Belbuca. Continues on gabapentin. Does occasionally use a cane for ambulatory support. He reports his back pain is fairly well controlled with current med regime, (6) Right shoulder pain: Code(s): M25.511 - Pain in right shoulder Qualifiers: Chronicity: acute Qualified Code(s): M25.511 - Pain in right shoulder Plan: Reports having acute right shoulder pain after lifting groceries up to his [address]nd floor apartment several months ago. He reports NSAIDs have not been helpful. He is willing to see Orthopedics for possible cortisone injection in his right shoulder. Did discuss physical therapy and he declines at this time. Orders: Orders AMB Hemoglobin A1c Today E11.65 - Type 2 diabetes mellitus with hyperglycemia XR shoulder RT min 2V Today M25.511 - Pain in right shoulder Referrals Gastroenterology Referral D12.6 - Benign neoplasm of colon, unspecified Orthopedics Referral M25.511 - Pain in right shoulder Ophthalmology Referral E11.65 - Type 2 diabetes mellitus with hyperglycemia Medications: New cane As directed 1 ea 0RF M43.06 - Spondylolysis, lumbar region cane As directed 1 ea 0RF M43.06 - Spondylolysis, lumbar region lidocaine 5% leave on most painful area for up to 12 hrs 1 patch topical DAILY 30 days 30 ea 1RF M25.511 - Pain in right shoulder semaglutide (Ozempic) 0.25 mg (0.368 mL) subcut QWEEK 4 weeks 3 mL 2RF E11.65 - Type 2 diabetes mellitus with hyperglycemia Patient Instructions: Goal: A1c to be below 7.0, LDL to be below 100 Barriers: Adherence to physical activity and healthy eating habits. Willingness to start insulin Coding Level of Care Code Est Pt Prev Care 40-64y(21634) Diagnoses Annual physical exam Z00.00 Mixed hyperlipidemia E78.2 Hyperlipidemia type: mixed hyperlipidemia Essential hypertension I10 Hypertension type: essential hypertension Type 2 diabetes mellitus with hyperglycemia, without long-term current use of insulin E11.65 Diabetes mellitus senior care insulin use: without intermediate manager use Diabetes mellitus complication status: with hyperglycemia Lumbar spondylolysis M43.06 Acute pain of right shoulder M25.511 Chronicity: acute
== END 2024-07-27 15:42 | disposition home or self-care (01) ==
PROVIDERS: PCP Physician Assistant; Visit Provider Physician Assistant
DX: Z00.00 Encounter for general adult medical examination without abnormal findings (principal); E78.2 Mixed hyperlipidemia; I10 Essential (primary) hypertension; E11.65 Type 2 diabetes mellitus with hyperglycemia; M43.06 Spondylolysis, lumbar region; M25.511 Pain in right shoulder
CPT/HCPCS: 83036; 99396

== ENCOUNTER 2024-08-27 11:09 | Outpatient (REF) | payer OTHER, SELFPAY | END 2024-08-27 11:10 | disposition home or self-care (01) | LOC: HO.HOSX 11:09 | PROVIDERS: Visit Provider Physician Assistant | DX: M25.511 Pain in right shoulder (principal); M75.101 Unspecified rotator cuff tear or rupture of right shoulder, not specified as traumatic; E11.65 Type 2 diabetes mellitus with hyperglycemia | CPT/HCPCS: 20610; 73030; 99202; J1010; J2003 ==

== ENCOUNTER 2024-08-27 14:19 | Outpatient (AMB) | payer OTHER, SELFPAY ==
--- NOTE | 2024-08-27 14:38 | A.OFFVIS_ITS ---
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 Pt states he was pulling a heavy bucket when the pain started. Pt states he hears clicking in his shoulder and states he is unable to lift his arm above his head. Pt denies any previous surgeries or injections in his right shoulder. Allergies No Known Allergies Allergy (Verified 08/27/24 14:38) HPI HPI TILE BURNER- Right Shoulder Pain: Details: 59-year-old male who presents in the office today, as a new patient, for an evaluation of right shoulder pain. The patient was seen by his PCP on 07/27/24 when he reported persistent right shoulder pain ongoing for several months. The onset of pain is since he lifted groceries up to the second-floor apartment. He claims to have mild crepitus with ROM. He has tried anti-inflammatory without benefit. He deferred physical therapy at that time. While in the office today, the patient confirms right shoulder pain that started a few months ago. The patient reports the onset of pain was when pulling a heavy bucket. He mentions ?clicking? in the right shoulder. He is unable to lift his arm above his head. The patient denies any previous surgeries or injections in his right shoulder. The patient has a significant medical history of type 2 diabetes with retinopathy, hypertension and hyperlipidemia. [facility] Medical History Lumbar spondylolysis Right lumbar radiculopathy Surgical History History of eye surgery Family History Father Diabetes Hypertension Mother Diabetes Alzheimers disease CAD (coronary artery disease) Brother In good health Sister In good health Son In good health Other Mental problem Social History Housing: Apartment Alcohol intake: current Alcohol intake frequency: holidays/special occasions only Patient Tobacco Use Status: Never used Tobacco e-Cigarette/Vaping Use: Never Used Second Hand Smoke Exposure: No service: No Current occupational status: disabled Cognitive needs: No Hearing needs: No Vision needs: No Review of Systems Const All systems reviewed & are unremarkable except as noted in HPI and below Physical Exam Const General: cooperative and no acute distress Orientation/consciousness: patient oriented x3 Resp Effort & Inspection: normal respiratory effort and able to speak in complete sentences Cardio Peripheral pulses: Peripheral pulses 2+ throughout Skin General skin exam: no rashes or lesions noted Neuro General: patient oriented x3 Extrem Other: Right shoulder: Normal to inspection. No ecchymosis, erythema, or edema. Forward flexion and abduction to 90 degrees. Negative cross-body reach. 3/5 strength with an empty can. Negative drop arm. NVI. Office Procedures Joint Injection/Aspiration Joint Injection/Aspiration Primary Site: right shoulder Prep: site was prepped using aseptic technique, ethochloride spray was applied and injection warnings given Injected: 40 mg of, DepoMedrol and with 8 mL of (2% plain lido ) Approach Used: posterolateral Procedure: The patient tolerated the procedure well, but had some pain with the injection and there was some relief with the local anesthesia Coding 88242 - Large joint Procedure code (CPT) selection complete Assessment & Plan Assessment & Plan (1) Painful arc syndrome of right shoulder: Code(s): M75.101 - Unspecified rotator cuff tear or rupture of right shoulder, not specified as traumatic Category: Medical (2) DMII (diabetes mellitus, type 2): Code(s): E11.9 - Type 2 diabetes mellitus without complications Category: Medical Qualifiers: Diabetes mellitus correction insulin use: without superintendent container terminal use Diabetes mellitus complication status: with hyperglycemia Qualified Code(s): E11.65 - Type 2 diabetes mellitus with hyperglycemia Plan Mr. Shultz is a 59-year-old male who presents in the office today, as a new patient, for an evaluation of right shoulder pain. The patient was seen by his PCP on 07/27/24 when he reported persistent right shoulder pain ongoing for several months. The onset of pain is since he lifted groceries up to the second- floor apartment. He claims to have mild crepitus with ROM. He has tried anti- inflammatory without benefit. He deferred physical therapy at that time. While in the office today, the patient confirms right shoulder pain that started a few months ago. The patient reports the onset of pain was when pulling a heavy bucket. He mentions ?clicking? in the right shoulder. He is unable to lift his arm above his head. The patient denies any previous surgeries or injections in his right shoulder. The patient has a significant medical history of type 2 diabetes with retinopathy, hypertension and hyperlipidemia. The patient was offered a cortisone injection in the right shoulder with 40 mg of Depo-Medrol. The patient was explained the risks, benefits, and alternatives to receiving this injection. After receiving consent for the injection, the patient had the procedure done while in the office today. The patient tolerated the procedure well with no complication. Due to the patient?s history of diabetes, they were instructed to monitor his blood glucose level. The patient was informed that they could see a rise in their numbers and if the numbers became too high, they were instructed to call their pcp. The patient was also informed that they could have facial flushing as a side effect of the injection, but this will pass. We discussed the role of physical therapy, however, the patient deferred at this time. Follow up will be PRN, or sooner if needed. X-rays of the right shoulder which were obtained while in the office today and were reviewed by me, Kimberly Zamora PA-C, revealed: No acute fracture or dislocation. Orders: Orders XR shoulder RT min 2V 08/27/24 M25.519 - Pain in unspecified shoulder Patient Instructions: Scribed by Ana Franco, behavioral medical director, for Kimberly Zamora PA-C on 08/27/24 at 2:13 pm EST. Coding Level of Care Code New Pt Level 4 (21756) Diagnoses Painful arc syndrome of right shoulder M75.101 Type 2 diabetes mellitus with hyperglycemia, without long-term current use of insulin E11.65 Diabetes mellitus correction insulin use: without correction use Diabetes mellitus complication status: with hyperglycemia CPT Codes Coding - 31440 Large joint: 83869 - Large joint ([id number])
== END 2024-08-27 14:52 | disposition home or self-care (01) ==
LOC: HO.HOS 14:19
PROVIDERS: PCP Physician Assistant; Visit Provider Physician Assistant
DX: M75.101 Unspecified rotator cuff tear or rupture of right shoulder, not specified as traumatic (principal); E11.65 Type 2 diabetes mellitus with hyperglycemia
CPT/HCPCS: 20610; 99204

== ENCOUNTER 2025-04-21 15:10 | Outpatient (AMB) | payer OTHER, SELFPAY ==
--- NOTE | 2025-04-21 15:12 | A.OFFPC_ITS ---
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 Accompanied by: Self / Same As Patient Allergies No Known Allergies Allergy (Verified 04/21/25 15:22) Medication List - Last Reconciled 04/21/25 by Jared Cortez PA-C alcohol swabs (Alcohol Prep Pads) 1 pad topical BID aspirin 81 mg PO QAM bisacodyl (Dulcolax (bisacodyl)) 20 mg (4 x 5 mg) PO ONCE 1 day blood pressure test kit-medium As directed blood sugar diagnostic (FreeStyle Lite Strips) 1 strip miscellaneous BID 100 days blood-glucose meter (FreeStyle Banning kit) As directed cane As directed cholecalciferol (vitamin D3) 25 mcg PO DAILY 90 days cream base no.105 (bulk) (Base W301 cream) Diclofenac 3%, Baclofen 2%, Bupivicane 2% SIG: apply pea-sized amount 3-5 times daily to painful areas as needed cyanocobalamin (vitamin B-12) 100 mcg PO QAM dapagliflozin propanediol (Farxiga) 10 mg PO QAM diclofenac sodium 50 mg PO DAILY 10 days NR-lxircpihuwyoa-AP 10-325-200 mg/15 mL (Coricidin HBP Max Rvzy-Tik-Aop) 30 mL PO Q6H PRN 7 days ezetimibe 10 mg PO QAM fenofibrate 160 mg PO QPM gabapentin 800 mg PO QID lancets (TRUEplus Lancets) TEST BLOOD SUGAR TWICE DAILY lidocaine 5% 1 patch topical DAILY 30 days lisinopril 40 mg PO QAM metformin 1,000 mg PO BID 30 days miscellaneous medical supply 1 ea miscellaneous DAILY 30 days omega 9-yzc-fqs-fish oil 60-90-500 mg (Fish Oil) 1 cap PO BID 90 days polyethylene glycol 3350 (Miralax) 238 grams PO ONCE 1 day rosuvastatin 40 mg PO QAM semaglutide (Ozempic) 0.25 mg (0.368 mL) subcut QWEEK 4 weeks Tobacco use date assessed: 04/21/25 Dental Screening Dental Screen Date: 04/21/25 Did you have a dental visit in the last 12 months?: No Did you have a dental problem in the last 6 months where you did not have access to dental care?: Yes Was dental information given to patient?: Patient has dentist HPI f/u DMII HPI Details Patient is a 59-year-old male? here today for follow-up visit ? Patient has a past medical history significant type 2 diabetes with retinopathy chronic lumbar radiculopathy hypertension hyper lipidemia, vitamin-D deficiency. ?? unfortunately has been unable to get his fasting labs done. Concern--> reports he has continued to have right shoulder pain. Has tried anti-inflammatory though have not been helpful. He does admit to some crepitus with range of motion activities. He did see Orthopedics and got cortisone injection though did not feel it was helpful for his pain and range of motion. PLAN: Do the chronicity of his pain and decreased range of motion will send for MRI to evaluate for soft tissue issue ? Rotator cuff tear. ? .. ? CKD stage 3: Patient is followed by Nephrology and has been told to avoid nephrotoxins. ? .. ? Type 2 diabetes:? . Patient continues to have uncontrolled diabetes. He reports blood sugars at home have been 120s -150s. Previously Invokana was w orking well for him though insurance will not cover. ? Patient continues on Farxiga and metformin.? Has been tring to follow a low carbohydrate low sugar diet. He has trialed Ozempic though felt side effects of some abdominal bloating and was concerned about weight loss with the medication. HE STILL CONTINUES TO DECLINE MY OFFERS TO START INSULIN DAILY. PLAN: Will add on Actos 15 mg to his diabetic med regime for better glycemic control .. Hypertension: Blood pressure today in office acceptable. He reports that home blood pressures have been stable, he denies any chest discomfort, headaches, shortness of breath or fatigue [facility] Medical History (Updated 04/23/25 @ 16:36 by Jared Cortez PA-C) Sacroiliac joint dysfunction of both sides Lumbar spondylolysis Right lumbar radiculopathy Surgical History History of eye surgery Family History Father Diabetes Hypertension Mother Diabetes Alzheimers disease CAD (coronary artery disease) Brother In good health Sister In good health Son In good health Other Mental problem Social History Housing: Apartment Alcohol intake: current Alcohol intake frequency: holidays/special occasions only Patient Tobacco Use Status: Never used Tobacco e-Cigarette/Vaping Use: Never Used Second Hand Smoke Exposure: No service: No Current occupational status: disabled Cognitive needs: No Hearing needs: No Vision needs: No Questionnaire PHQ-9 Over the last 2 weeks, how often have you been bothered by any of the following problems? 1. Little interest or pleasure in doing things: not at all 2. Feeling down, depressed, or hopeless: not at all 3. Trouble falling or staying asleep, or sleeping too much: not at all 4. Feeling tired or having little energy: not at all 5. Poor appetite or overeating: not at all 6. Feeling bad about yourself - or that you are a failure or have let yourself or your family down: not at all 7. Trouble concentrating on things, such as reading the newspaper or watching television: not at all 8. Moving or speaking so slowly that other people could have noticed. Or the opposite - being so fidgety or restless that you have been moving around a lot more than usual: not at all 9. Thoughts that you would be better off or of hurting yourself in some way: not at all Total score: 0 Depression Screening Interpretation: Negative Depression Screening Done: Yes 52107 - PHQ-9 Billing: Yes Source: Developed by Drs. Santana Sanabria, Roopa Reza, Jake Rowan and colleagues, with an educational adalgisa from [employer]. Thrive Questionnaire Date Thrive assessed: 04/21/25 I am a: Patient What is your living situation today?: I have a steady place to live Within the past 12 months, did the food you bought not last and you didn't have the money to get more?: Never true Within the past 12 months, did you worry whether your food would run out before you got money to buy more?: Never true Do you have trouble paying for medicines?: No Do you have trouble getting transportation to medical appointments?: No Do you have trouble paying your heating and electricity bill?: No Do you have trouble taking care of your child, family member or friend?: No Do you have trouble with day-to-day activities such as bathing, preparing meals, shopping, managing finances, etc.?: No Are you currently unemployed and looking for a job?: No Are you interested in more education?: No Please select the resources that you would like help with: None Currently or been in a relationship where the following occur: No concerns reported THRIVE Score: 0 AUDIT C Alcohol Use Questionnaire (AUDIT-C) 1. How often do you have a drink containing alcohol?: Monthly or less 2. How many drinks containing alcohol do you have on a typical day when you are drinking?: 1 or 2 3. How often do you have six or more drinks on one occasion?: Never Total Score: 1 SHAHRIAR-7 AMB Questionnaire SHAHRIAR-7 Date SHAHRIAR - 7 assessed: 04/21/25 Feeling nervous, anxious, or on edge: 0 = Not at all Not being able to stop or control worryin = Not at all Worrying too much about different things: 0 = Not at all Trouble relaxin = Not at all Being so restless that it is hard to sit still: 0 = Not at all Becoming easily annoyed or irritable: 0 = Not at all Feeling afraid as if something awful might happen: 0 = Not at all Total SHAHRIAR-7 score (0-4 normal; 5-9 mild; 10-14 moderate; 15-21 severe): 0 Source: Developed by Drs. Santana Sanabria, Roopa Reza, Jake Rowan and colleagues, with an educational adalgisa from [employer]. SHAHRIAR-7 Assessment Billing SHAHRIAR-7 Assessment Tool: SHAHRIAR-7 Assessment 27948 Review of Systems Const Denies headache(s) Eyes Denies loss of vision ENT Denies vertigo, Denies dizziness, Denies headache(s) and Denies sore throat Card Denies chest pain, Denies leg edema and Denies lightheadedness Resp Denies cough, Denies hemoptysis and Denies wheezing GI Denies abdominal pain, Denies melena, Denies constipation, Denies diarrhea and Denies vomiting Denies dysuria, Denies urinary frequency and Denies urinary urgency Musc Denies arthralgias, Denies joint swelling, Denies numbness and Denies tingling Neuro Denies Abnormal speech present, Denies behavioral changes, Denies vertigo, Denies dizziness, Denies headache(s), Denies loss of vision, Denies memory loss, Denies numbness and Denies tingling Psych Denies anxiety, Denies behavioral changes, Denies depression, Denies memory loss and Denies panic attacks Rickey/Lymph Denies easy bleeding and Denies easy bruising Aller/Immun Denies wheezing Physical exam (Primary Care) Vital Signs: Last Vital Signs Temp 97.1 F 04/21/25 15:13 Pulse 78 04/21/25 15:13 BP 120/58 L 04/21/25 15:13 Pulse Ox 98 04/21/25 15:13 Oxygen Delivery Method Room Air 04/21/25 15:13 BMI result Body Mass Index 22.7 Tobacco/Smoking Status: Tobacco use Status Tobacco use date assessed 04/21/25 04/21/25 15:21 Patient Tobacco Use Status Never used Tobacco 04/21/25 15:13 e-Cigarette/Vaping Use Never Used 04/21/25 15:13 PHQ-9: PHQ-9 Score PHQ-9: Total score 0 04/21/25 15:33 Depression Screening Interpretation: Negative Thrive Assessment: Date of Thrive Assessment Date Thrive assessed 04/21/25 04/21/25 15:21 Currently or been in a relationship where the following occur: No concerns reported Const General: healthy appearing, no acute distress, alert and awake Nutritional Appearance: well nourished Orientation/consciousness: oriented to person, oriented to place and oriented to time HENVA Ears: TM's normal bilaterally General nose exam: Normal nasal mucous membranes and turbinates present Eyes Conjunctivae: conjunctivae normal Sclerae: sclerae normal Pupils: Equal, round and reactive pupils present Neck Neck: Yes no lymphadenopathy and Yes no JVD Thyroid: Thyroid normal Carotids: no bruits Resp Effort & Inspection: normal respiratory effort and not tachypneic Auscultation: no crackles, no rales, no rhonchi and no wheezes Cardio Rate: regular rate Rhythm: regular rhythm Heart sounds: no murmurs and normal S1 and S2 GI Palpation (GI): Soft to palpation, nontender, no hepatomegaly and no splenomegaly Auscultation: normal bowel sounds Skin General skin exam: no rashes or lesions noted and dry skin Neuro General: oriented to person, oriented to place and oriented to time Cranial nerves: Yes Equal, round and reactive pupils present Speech: No Abnormal speech present Gait exam (Neuro): Normal gait present Motor exam (neuro): no tremor noted Extrem Other: LIMITED RANGE OF MOTION NOTED OF THE RIGHT SHOULDER, POSITIVE EMPTY CAN TEST, NEGATIVE REYES TEST. Right upper extremity: ROM limited Left upper extremity: full ROM Right lower extremity: full ROM; no edema Left lower extremity: full ROM; no edema Psych Mental Status: mental status grossly normal Speech and movement: Normal speech and movement present Affect: normal affect Attitude: cooperative Thought process: Normal thought process present Results AMB Hemoglobin A1c AMB Hemoglobin A1c 9.3 % Last Edit by GUCCI Ferrer on 04/21/25 15:34 Results Reviewed Results Reviewed: Laboratory Last Values Hgb A1c (Clinic) 9.3 % (4.0-6.0) H 04/21/25 15:15 Coding Level of Care Code Est Pt Level 4 (79223) Diagnoses Type 2 diabetes mellitus with hyperglycemia, without long-term current use of insulin E11.65 Diabetes mellitus complication status: with hyperglycemia Diabetes mellitus long chain quiller tender insulin use: without detention use Essential hypertension I10 Hypertension type: essential hypertension Mixed hyperlipidemia E78.2 Hyperlipidemia type: mixed hyperlipidemia Right rotator cuff tear arthropathy M75.101; M12.811 Additional Codes SHAHRIAR-7 Assessment Billing - SHAHRIAR-7 Assessment Tool: SHAHRIAR-7 Assessment 16354 ([id number]) PHQ-9 - 25349 - PHQ-9 Billing: Yes ([id number]) Assessment & Plan Assessment & Plan (1) DMII (diabetes mellitus, type 2): Code(s): E11.9 - Type 2 diabetes mellitus without complications Category: Medical Qualifiers: Diabetes mellitus complication status: with hyperglycemia Diabetes mellitus detention insulin use: without long chain quiller tender use Qualified Code(s): E11.65 - Type 2 diabetes mellitus with hyperglycemia Plan: patient's type 2 diabetes suboptimally controlled with A1c today at 9.3 from >10. Has a unfortunate knee not been taking Ozempic due to fears of weight loss. He continues to decline starting insulin therapy.. Diabetes has been better controlled as of late though he is willing to add on Actos 15 mg to his oral antihyperglycemic med regime. Goal A1c is to be below 7.0 (2) HTN (hypertension): Code(s): I10 - Essential (primary) hypertension Category: Medical Qualifiers: Hypertension type: essential hypertension Qualified Code(s): I10 - Essential (primary) hypertension Plan: patient's blood pressure acceptable today in office. Will continue his current dose of antihypertensive medication with goal blood pressure to remain below 140/90 (3) HLD (hyperlipidemia): Code(s): E78.5 - Hyperlipidemia, unspecified Category: Medical Qualifiers: Hyperlipidemia type: mixed hyperlipidemia Qualified Code(s): E78.2 - Mixed hyperlipidemia Plan: patient's cholesterol elevated. He is on a few different medications to help reduce his cholesterol. Has not gotten his fasting labs done in quite some time and promises to do so before next appointment. Goal LDL is to be 100 (4) Right rotator cuff tear arthropathy: Code(s): M75.101 - Unspecified rotator cuff tear or rupture of right shoulder, not specified as traumatic; M12.811 - Other specific arthropathies, not elsewhere classified, right shoulder Category: Medical Plan: The patient has ongoing right shoulder pain, suspected rotator cuff issue. MRI planned for further evaluation. Symptoms managed with heat therapy; physical therapy considered post-MRI. Orders: Orders AMB Hemoglobin A1c 04/21/25 - Type 2 diabetes mellitus with hyperglycemia Lipid Panel 04/21/25 E78.2 - Mixed hyperlipidemia Microalbumin, Random (w Creat) 04/21/25 I10 - Essential (primary) hypertension MR shoulder RT wo con 04/21/25 M12.811 - Other specific arthropathies, not elsewhere classified, right shoulder, M75.101 - Unspecified rotator cuff tear or rupture of right shoulder, not specified as traumatic Comprehensive [place]. Panel Fast 04/21/25 - Type 2 diabetes mellitus with hyperglycemia Complete Blood Count no Diff 04/21/25 - Type 2 diabetes mellitus with hyperglycemia Prostate Specific Antigen Scr 04/21/25 I10 - Essential (primary) hypertension, Z12.5 - Encounter for screening for malignant neoplasm of prostate Medications: New blood-glucose meter (FreeStyle Banning kit) As directed 1 ea 0RF E11.65 - Type 2 diabetes mellitus with hyperglycemia pioglitazone (Actos) 15 mg PO DAILY 90 tabs 1RF 90 days E11.65 - Type 2 diabetes mellitus with hyperglycemia Discontinued semaglutide (Ozempic) Discontinued Reason: Doctor's Order 0.25 mg (0.368 mL) subcut QWEEK 4 weeks 3 mL 2RF E11.65 - Type 2 diabetes mellitus with hyperglycemia Patient Instructions: Goal: A1c to be below 7.0, blood pressure to remain below 140/90 and LDL to be below 100. Barriers: Adherence to physical activity and healthy eating habits
--- OUTSIDE RECORDS SUMMARY | 2025-04-21 15:12 | XMS_ITS | Clinical Summary ---
Author Organization [facility] Facility Address [address] [place] [id number] Care Team Providers Care Shot Blaster Name Role Phone Jared Cortez Primary Care Provider [phone] Medications aspirin (ST ENRIQUE) 81 MG EC tablet Take 1 tablet by mouth 1 (one) time each day Active atorvastatin (LIPITOR) 80 MG tablet Take 1 tablet by mouth 1 (one) time each day Active cholecalciferol (VITAMIN D-3) 25 MCG (1000 UT) capsule Take 1 capsule by mouth 1 (one) time each day Active cyclobenzaprine (FLEXERIL) 10 MG tablet Take 1 tablet by mouth 2 (two) times a day Active Dapagliflozin Propanediol (Farxiga) 10 MG tablet Take 1 tablet by mouth 1 (one) time each day Active fenofibrate (TRIGLIDE) 160 MG tablet Take 1 tablet by mouth 1 (one) time each day in the evening Active gabapentin (NEURONTIN) 800 MG tablet Take 1 tablet by mouth 3 (three) times a day Active glipiZIDE (GLUCOTROL) 5 MG tablet Take 1 tablet by mouth 1 (one) time each day Active lisinopril (PRINIVIL,ZESTRI L) 40 MG tablet Take 1 tablet by mouth 1 (one) time each day Active metFORMIN (GLUCOPHAGE) 500 MG tablet Take 1 tablet by mouth 2 (two) times a day Active tadalafil (CIALIS) 20 MG tablet Take 0.5 tablets by mouth 1 (one) time each day Active traMADol (ULTRAM) 50 MG tablet Take 1 tablet by mouth 1 (one) time each day Active triamcinolone (KENALOG) 0.1 % lotion by Other route 2 (two) times a day Active rosuvastatin (CRESTOR) 40 MG tablet Take 40 mg by mouth 1 Active oxyCODONE-acetam inophen (PERCOCET) 7.5-325 MG per tablet Take 1 tablet by mouth every 8 (eight) hours 1 Active ezetimibe (ZETIA) 10 MG tablet Take 10 mg by mouth 1 Active Buprenorphine 7.5 MCG/HR patch weekly APPLY 1 PATCH TOPICALLY EVERY 7 DAYS 1 Active Active Problems Problem Noted Date Diagnosed Date Chronic back pain 04/04/2021 Diabetic glomerulonephritis 02/27/2021 Vitamin D deficiency, not otherwise specified Dyslipidemia 02/27/2021 Stage 3b chronic kidney disease 02/23/2021 Hypertension 02/23/2021 Hypertensive nephrosclerosis 02/23/2021 Type 2 diabetes mellitus 02/23/2021 Family History Medical History Relation Comments Diabetes Father Hypertension Father Diabetes Mother Relation Status Comments Father Alive Mother Social History Tobacco Use Types Packs/Day Years Used Date Smoking Tobacco: Never Smokeless Tobacco: Never Alcohol Use Standard Drinks/Week Comments Not Currently 0 (1 standard drink = 0.6 oz pure alcohol) Alcoholic Drinks/day: 1-2 drinks per day Sex and Gender Information Value Date Recorded Sex Assigned at Not on file Legal Sex Male 4:56 PM EST Gender Identity Not on file Sexual Orientation Not on file Last Filed Vital Signs Vital Sign Reading Time Taken Comments Blood Pressure 126/72 11/23/2019 12:00 PM EST Pulse 73 11/23/2019 12:00 PM EST Temperature - - Respiratory Rate - - Oxygen Saturation 98% 11/23/2019 12:00 PM EST Inhaled Oxygen Concentration - - Weight 70.1 kg (154 lb 9.6 oz) 11/23/2019 12:00 PM EST Height 162.6 cm (5' 4 ) 11/23/2019 12:00 PM EST Body Mass Index 26.54 11/23/2019 12:00 PM EST Plan of Treatment Health Maintenance Due Date Last Done Comments Pneumococcal Vaccine: 50+ Ye ars (1 of 2 - PCV) 1983 Colorectal Cancer Screening: Annual FOBT 2013 Colorectal Cancer Screening: Colonoscopy 2013 Colorectal Cancer Screening: Sigmoidoscopy 2013 Diabetes: Hemoglobin A1C 12/25/2020 06/27/2020 Diabetes: Ophthalmology Exam 12/25/2020 Diabetes: Pedal Pulse Checked 12/25/2020 Diabetes: Sensory Foot Exam 12/25/2020 Diabetes: Visual Foot Exam 12/25/2020 Influenza Vaccine (Season Ended) 2025 Hepatitis B Vaccine Aged Out No longe r eligible based on patient's age to complete this topic Procedures Procedure Name Priority Date/Time Associated Diagnosis Comments EXT RESULT ENTRY Routine 06/27/2020 from Last 3 Months or Most Recently Relevant to Health Maintenance Results * (ABNORMAL) EXT RESULT ENTRY (06/27/2020) WBC 6.1 3.3 - 10.0 10*3/ML Red Blood Cell Count 4.64 Hemoglobin 14.2 13.5 - 17.5 Hematocrit 42.1 41.0 - 53.0 Platelets 240 150 - 399 10*3/UL MCV 90.7 82.0 - 108.0 Sodium 138 137 - 147 Potassium 4.0 3.4 - 5.5 Chloride 104 99 - 108 Bicarbonate (CO2) 28 22 - 30 mmol/L Anion Gap 10 <=30 MMOL/L Glucose 192 60 - 200 BUN 22(A) 4 - 21 mg/dL Creatinine 1.14 0.60 - 1.30 mg/dL Total Protein 7.3 6.4 - 8.2 G/DL Albumin 4.5 3.5 - 5.0 g/dL Calcium 9.7 8.7 - 10.7 mg/dL Phosphorus, Serum 4.3 eGFR Non-Afr Macedonian 60 Total Bilirubin 0.5 MG/DL Bilirubin Direct 0.2 ALT (SGPT) 39 U/L AST (SGOT) 22 U/L Alkaline Phosphatase 74 U/L Hemoglobin A1C 8.3(A) 4.0 - 6.0 Triglycerides 310(A) 40 - 160 Cholesterol 145 0 - 200 HDL 31(A) 35 - 70 MG/DL LDL Calculated 52 0 - 160 mg/dL 06/27/2020 us Historical Provider LAB BLOOD ORDERABLES Marquita l Result from Last 3 Months or Most Recently Relevant to Health Maintenance Insurance [facility] ([id number]) [facility] ([id number]) Care Teams Shot Blaster Relationship Specialty Start Date End Date Jared Cortez PA [address] [place] [address], [address] [place] [address] PCP - General Physician Shirt Presser 04/03/21
[2025-04-21 15:13] VITALS: BP 120/58; PULSE 78; TEMP 36.2; O2SAT 98; BMI 22.7
== END 2025-04-21 15:55 | disposition home or self-care (01) ==
LOC: HO.HMCH 15:10
PROVIDERS: PCP Physician Assistant; Visit Provider Physician Assistant
DX: E11.65 Type 2 diabetes mellitus with hyperglycemia (principal)

== ENCOUNTER → 2025-04-21 15:10 | Outpatient (BNVA) | payer OTHER, SELFPAY | PROVIDERS: PCP Physician Assistant; Visit Provider Physician Assistant | DX: E11.65 Type 2 diabetes mellitus with hyperglycemia (principal); I10 Essential (primary) hypertension; E78.2 Mixed hyperlipidemia; M75.101 Unspecified rotator cuff tear or rupture of right shoulder, not specified as traumatic; M12.811 Other specific arthropathies, not elsewhere classified, right shoulder | CPT/HCPCS: 83036; 96127; 99212 ==

== ENCOUNTER 2025-05-17 14:04 | Outpatient (REF) | payer OTHER, SELFPAY ==
--- NOTE | ~2025-05-17 | MR_ITS ---
CLINICAL HISTORY: M75.101 - Unspecified rotator cuff tear or rupture of right shoulder, no... MR right shoulder without gadolinium Comparison: None provided Findings: Normal alignment without acute fracture. Severe degenerative narrowing of the posterior aspect of the AC joint with associated moderate subchondral edematous changes. No evidence of subacromial/subdeltoid impingement. Minimal glenohumeral joint effusion. Mild subcoracoid recess synovitis with likely reactive edematous changes in the coracoid process. Partial thinning of the glenohumeral cartilage. Mild subacromial/subdeltoid bursitis. [id number] supraspinatus and subscapularis, as well as mild infraspinatus tendinosis. No rotator cuff tear (mild hypervascularity of the subscapularis footprint on series 11, image 52 should not be mistaken for a tear). No significant rotator cuff atrophy. [id number] intra-articular long head of biceps tendinosis and mild tenosynovitis of the long head of biceps tendon at level of the bicipital groove. No labral tear. IMPRESSION: [id number] rotator cuff tendinosis. No rotator cuff tear. [id number] long head of biceps tendinosis. Mild subcoracoid synovitis AC osteoarthritis associated with moderate subchondral bone marrow edematous changes. This document has been electronically signed by: Addis Tompkins MD on 05/18/2025 08:59:36
--- OUTSIDE RECORDS SUMMARY | 2025-05-17 17:09 | XMS_ITS | Clinical Summary ---
Author Organization [facility] Facility Address [address] [place] [address] Care Team Providers Care Refractory Worker Name Role Phone Jared Cortez Primary Care Provider [phone] Medications aspirin (ST ENRIQUE) 81 MG EC [...] 10.7 mg/dL Phosphorus, Serum 4.3 eGFR Non-Afr Sen[place]alese 60 Total Bilirubin 0.5 MG/DL Bilirubin Direct [...] Most Recently Relevant to Health Maintenance Insurance [facility] ([id number]) [facility] ([id number]) Care Teams Refractory Worker Relationship Specialty Start Date End Date Jared Cortez PA [address] [place] [address], [address] [place] [address] PCP - General Physician Bacteriologist Pharmaceutical 04/03/21
== END 2025-05-17 14:05 | disposition home or self-care (01) ==
LOC: HO.MRI 14:04
PROVIDERS: PCP Physician Assistant; Visit Provider Physician Assistant
DX: M75.101 Unspecified rotator cuff tear or rupture of right shoulder, not specified as traumatic (principal); M12.811 Other specific arthropathies, not elsewhere classified, right shoulder
CPT/HCPCS: 73221

== ENCOUNTER → 2025-05-17 14:09 | Outpatient (BNV) | payer OTHER, SELFPAY | PROVIDERS: PCP Physician Assistant; Visit Provider Radiology Diagnostic Radiology | DX: M75.31 Calcific tendinitis of right shoulder (principal); M75.21 Bicipital tendinitis, right shoulder; M19.011 Primary osteoarthritis, right shoulder | CPT/HCPCS: 73221 ==

== ENCOUNTER 2025-08-23 09:02 | Outpatient (REF) | payer OTHER, SELFPAY ==
--- NOTE | ~2025-08-23 | XR_ITS ---
EXAMINATION: XR SHOULDER 2 OR MORE VIEWS RIGHT HISTORY: M25.519 - Pain in unspecified shoulder COMPARISON: Comparison is made with the prior examination dated 08/27/2024. FINDINGS: Three views of the right shoulder are submitted. Osseous mineralization is normal. There is no fracture or dislocation. The glenohumeral joint is maintained. There is mild narrowing of the AC joint. The soft tissues are unremarkable. XR/XR shoulder RT min 2V IMPRESSION: Mild narrowing of the AC joint. Electronically signed by: Santana Davalos MD 08/23/2025 10:06 AM EDT
--- OUTSIDE RECORDS SUMMARY | 2025-08-24 09:43 | XMS_ITS | Clinical Summary ---
Author Organization [facility] Facility Address [address] [place] [address] Care Team Providers Care Advanced Practice Nurse Name Role Phone Jared Cortez Primary Care Provider [phone] Medications aspirin (ST ENRIQUE) 81 MG EC [...] 10.7 mg/dL Phosphorus, Serum 4.3 eGFR Non-Afr [place]er 60 Total Bilirubin 0.5 MG/DL Bilirubin Direct [...] Most Recently Relevant to Health Maintenance Insurance [facility] ([id number]) [facility] ([id number]) Care Teams Advanced Practice Nurse Relationship Specialty Start Date End Date Jared Cortez PA [address] [place] [address], [address] [place] [address] PCP - General Physician Manager Film 04/03/21
== END 2025-08-23 09:03 | disposition home or self-care (01) ==
LOC: HO.HOSX 09:02
PROVIDERS: Visit Provider Physician Assistant
DX: G89.29 Other chronic pain (principal); M75.101 Unspecified rotator cuff tear or rupture of right shoulder, not specified as traumatic
CPT/HCPCS: 73030; 99212

== ENCOUNTER 2025-08-23 09:52 | Outpatient (AMB) | payer OTHER, SELFPAY ==
--- NOTE | 2025-08-23 10:08 | MHC.OFFVIS ---
Intake Visit Reasons: OV - Right shoulder pain Intake Note: Roldan is a 60 year old right hand dominant male who presents today for a follow up of his right shoulder pain, last injection 08/27/24. Patient reports his last injection didnt give him relief. Patient finds relief with warm compresses. He states that he is unable to sleep on his side. No hx of physical therapy. Allergies No Known Allergies Allergy (Verified 08/23/25 10:08) HPI HPI OV - Right shoulder pain: Details: Mr. Shultz is a 60-year-old right-hand dominant male who presents to the office today for chronic right shoulder pain. He received a cortisone injection on 08/27/2024 which he reports did not give him relief. Although, he reports that for roughly 1-2 weeks he did feel some relief. His main complaint is that it is difficult to sleep on his right side due to shoulder pain. He reports that he has been using a topical pain cream that his was prescribed. [facility] Medical History (Updated 05/24/25 @ 16:20 by Jared Cortez PA-C) Sacroiliac joint dysfunction of both sides Lumbar spondylolysis Right lumbar radiculopathy Surgical History History of eye surgery Family History Father Diabetes Hypertension Mother Diabetes Alzheimers disease CAD (coronary artery disease) Brother In good health Sister In good health Son In good health Other Mental problem Social History Housing: Apartment Alcohol intake: current Alcohol intake frequency: holidays/special occasions only Patient Tobacco Use Status: Never used Tobacco e-Cigarette/Vaping Use: Never Used Second Hand Smoke Exposure: No service: No Current occupational status: disabled Cognitive needs: No Hearing needs: No Vision needs: No Review of Systems Const All systems reviewed & are unremarkable except as noted in HPI and below Physical Exam Const General: cooperative and no acute distress Orientation/consciousness: patient oriented x3 Resp Effort & Inspection: normal respiratory effort and able to speak in complete sentences Neuro General: patient oriented x3 Extrem Other: Right shoulder: Normal to inspection. No ecchymosis, erythema, or edema. Forward flexion and abduction to 90 degrees. Negative cross-body reach. 3/5 strength with an empty can. Negative drop arm. NVI. Assessment & Plan Assessment & Plan (1) Painful arc syndrome of right shoulder: Code(s): M75.101 - Unspecified rotator cuff tear or rupture of right shoulder, not specified as traumatic Category: Medical Plan Mr. Shultz is a 60-year-old right-hand dominant male who presents to the office today for chronic right shoulder pain. He received a cortisone injection on 08/27/2024 which he reports did not give him relief. Although, he reports that for roughly 1-2 weeks he did feel some relief. His main complaint is that it is difficult to sleep on his right side due to shoulder pain. He reports that he has been using a topical pain cream that his was prescribed. While the office today, we discussed continuation of conservative treatment as the patient had an MRI that was performed on 05/18/2025 and was negative for any rotator cuff tearing or surgical intervention. Patient is interested in a topical pain cream that his was prescribed as he has use this and it did give him some relief. Unfortunately, he does not know the name of this medication. Therefore, I have provided him with my business card and instructed him to contact me with the prescription information and I will consider prescribing this to him. I encouraged the patient to continue anti-inflammatories if he is able to do so and oral pain relievers [id number] if he is also able to do so. He will follow up PRN, sooner if needed. X-rays of the knees right shoulder which were obtained while in the office today and were reviewed by me, Kimberly Zamora PA-C, revealed no acute fracture or dislocation. There is some mild narrowing of the AC joint. MRI of the right shoulder obtained on 05/18/2025: IMPRESSION: [id number] rotator cuff tendinosis. No rotator cuff tear. Oeab-he-lwyhyvyx long head of biceps tendinosis. Mild subcoracoid synovitis AC osteoarthritis associated with moderate subchondral bone marrow edematous changes. Orders: Orders XR shoulder RT min 2V Today M25.519 - Pain in unspecified shoulder Coding Level of Care Code Est Pt Level 3 (82523) Diagnoses Painful arc syndrome of right shoulder M75.101
--- OUTSIDE RECORDS SUMMARY | 2025-08-23 10:46 | XMS_ITS | Clinical Summary ---
Author Organization [facility] Facility Address [address] [place] [id number] Care Team Providers Care Director Of Land Name Role Phone Jared Cortez Primary Care Provider [phone] Medications aspirin (ST ENRIQUE) 81 MG EC [...] Diabetes: Visual Foot Exam 12/25/2020 Influenza Vaccine (#1) 2025 Hepatitis B Vaccine Aged Out No [...] 10.7 mg/dL Phosphorus, Serum 4.3 eGFR Non-Afr [place]e 60 Total Bilirubin 0.5 MG/DL Bilirubin Direct [...] Most Recently Relevant to Health Maintenance Insurance [facility] ([id number]) [facility] ([id number]) Care Teams Director Of Land Relationship Specialty Start Date End Date Jared Cortez PA [address] [place] [address], [address] [place] [address] PCP - General Physician Sewer And Inspector 04/03/21
== END 2025-08-23 10:33 | disposition home or self-care (01) ==
LOC: HO.HOS 09:53
PROVIDERS: PCP Physician Assistant; Visit Provider Physician Assistant
DX: M75.101 Unspecified rotator cuff tear or rupture of right shoulder, not specified as traumatic (principal)
CPT/HCPCS: 99213

== ENCOUNTER → 2025-08-23 09:56 | Outpatient (BNV) | payer OTHER, SELFPAY | PROVIDERS: Visit Provider Radiology Diagnostic Radiology | DX: M25.811 Other specified joint disorders, right shoulder (principal) | CPT/HCPCS: 73030 ==